=== PATIENT | male | born 1995 | race Caucasian/White ===

== ENCOUNTER 2016-10-06 19:31 | Emergency (ER) | payer OTHER ==
[2016-10-06 19:40] VITALS: BP 115/64
[2016-10-06] MEDS ORDERED: Clindamycin 900 MG IVPREMIX(* 900 MG/50 ML SDV IV ONE (20:23)
[2016-10-06] MEDS ORDERED: Acetaminophen IV 1GM/100ML * 1,000 MG/100 ML VIAL IVPB ONE (20:23)
[2016-10-06] MEDS ORDERED: NS 0.9% 1000 ML* 2,000 ML IV ONE (20:23)
[2016-10-06 20:41] LABS: Hematocrit 40 % (42-52); Hemoglobin 13.9 g/dl (14.0-18.0); Mean Corpuscular HGB Conc 35 g/dl (31-36); Mean Corpuscular Hemoglobin 29 pg (27-31); Mean Corpuscular Volume 83 fL (80-94); Mean Platelet Volume 7 um3 (7.4-10.4); Red Blood Count 4.78 10^6/ul (4.0-5.4); Red Cell Distribution Width 13 % (10.5-15); White Blood Count 12.7 10^3/ul (3.5-10.8)
[2016-10-06] MEDS ORDERED: Dexamethasone IV* 8 MG in NS 0.9% 50 ML* 50 ML IVPB ONE ×2 (20:54→21:00)
[2016-10-06 20:58] LABS: Albumin 4.3 g/dL (3.2-5.2); BUN/Creatinine Ratio 19.7 (8-20); C Reactive Protein 100.35 mg/L (< 5.00); Calcium 9.4 mg/dL (8.6-10.3); EGFR African American 166.5 (>60); EGFR Non-African American 129.5 (>60); Globulin 2.7 g/dL (2-4); Potassium 3.8 mmol/L (3.5-5.0); Total Bilirubin 2.9 mg/dL (0.2-1.0)
[2016-10-06] MEDS ORDERED: Acetaminophen IV 1GM/100ML * 1,000 MG in PREMIX* 0 ML IVPB ONE (21:00)
[2016-10-06] MEDS ORDERED: Dexamethasone IV* 8 MG in NS 0.9% 50 ML* 50 ML IVPB SCH (21:00)
[2016-10-06] MEDS ORDERED: NS 0.9% 50 ML* 50 ML ONE (21:05)
[2016-10-06] MEDS ORDERED: Ketorolac INJ* 30 MG/ML 1 ML VIAL IV ONE (22:05)
[2016-10-06] MEDS ORDERED: Clindamycin CAP* 150 MG PO ONE (22:07)
[2016-10-06] MEDS ORDERED: Ketorolac INJ* 60 MG/2 ML VIAL IM ONE (22:14)
--- NOTE | 2016-10-06 23:13 | ED ---
Throat Pain/Nasal Congestion - HPI Summary HPI Summary: Patient presents with throat pain and swelling since yesterday. Three weeks ago he had similar symptoms and was diagnosed with a peritonsillar abscess, which was treated and he thought resolved. He denies difficulty breathing or swallowing, although it hurts to swallow. He was suppose to follow-up with an ENT today in [place], but he is a student at [employer] and could not get to [place]. He denies fever, chills, N/V/D or neck pain. - History of Current Complaint Chief Complaint: EDThroatPain Time Seen by Provider: 10/06/16 20:05 Hx Obtained From: Patient Onset/Duration: Gradual Onset Severity: Severe Associated Signs And Symptoms: Positive: Dysphagia Cough: None - Allergies/Home Medications Allergies/Adverse Reactions: Allergies Allergy/AdvReac Type Severity Reaction Status Date / Time No Known Allergies Allergy Verified 10/06/16 19:40 PMH/Surg Hx/FS Hx/Imm Hx Previously Healthy: Yes Infectious Disease History: Denies: Traveled Outside the in Last 30 Days - Family History Known Family History: Positive: None - Social History Occupation: Student Lives: Alone Alcohol Use: None Substance Use Type: Reports: None Smoking Status (MU): Never Smoked Tobacco Review of Systems Negative: Fever, Chills Positive: Sore Throat. Negative: Ear Ache, Nasal Discharge Negative: Chest Pain Negative: Shortness Of Breath All Other Systems Reviewed And Are Negative: Yes Physical Exam Triage Information Reviewed: Yes Vital Signs On Initial Exam: Initial Vitals Temp Pulse Resp BP Pulse Ox 100.1 F 105 18 115/64 98 10/06/16 19:35 10/06/16 19:35 10/06/16 19:35 10/06/16 19:35 10/06/16 19:35 Vital Signs Reviewed: Yes Appearance: Positive: Well-Appearing, Well-Nourished, Pain Distress Skin: Positive: Warm, Skin Color Reflects Adequate Perfusion, Dry, Soft Head/Face: Positive: Normal Head/Face Inspection Eyes: Positive: EOMI, LETI, Conjunctiva Clear ENT: Positive: Hearing grossly normal, TMs normal, Tonsillar swelling - right side, Trismus - mild. Negative: Pharyngeal erythema, Nasal congestion, Tonsillar exudate Neck: Positive: Supple, No Lymphadenopathy, Tenderness @ Respiratory/Lung Sounds: Positive: Clear to Auscultation, Breath Sounds Present Cardiovascular: Positive: Tachycardia Musculoskeletal: Negative: Edema Left, Edema Right Neurological: Positive: Sensory/Motor Intact, Alert, Oriented to Person Place, Time, NV Bundle Intact Distally Psychiatric: Positive: Affect/Mood Appropriate AVPU Assessment: Alert Diagnostics - Vital Signs Vital Signs Temp Pulse Resp BP Pulse Ox 10/06/16 19:35 100.1 F 105 18 115/64 98 - Laboratory Lab Results: Lab Results 10/06/16 10/06/16 Range/Units 20:30 20:30 WBC 12.7 H (3.5-10.8) 10^3/ul RBC 4.78 (4.0-5.4) 10^6/ul Hgb 13.9 L (14.0-18.0) g/dl Hct 40 L (42-52) % MCV 83 (80-94) fL MCH 29 (27-31) pg MCHC 35 (31-36) g/dl RDW 13 (10.5-15) % Plt Count 212 (150-450) 10^3/ul MPV 7 L (7.4-10.4) um3 Neut % (Auto) 79.1 (38-83) % Lymph % (Auto) 11.3 L (25-47) % [place] % (Auto) 8.0 (1-9) % Eos % (Auto) 0.8 (0-6) % Baso % (Auto) 0.8 (0-2) % Absolute Neuts (auto) 10.0 H (1.5-7.7) 10^3/ul Absolute Lymphs (auto) 1.4 (1.0-4.8) 10^3/ul Absolute Monos (auto) 1.0 H (0-0.8) 10^3/ul Absolute Eos (auto) 0.1 (0-0.6) 10^3/ul Absolute Basos (auto) 0.1 (0-0.2) 10^3/ul Absolute Nucleated RBC 0 10^3/ul Nucleated RBC % 0 Sodium 136 (133-145) mmol/L Potassium 3.8 (3.5-5.0) mmol/L Chloride 100 L (101-111) mmol/L Carbon Dioxide 27 (22-32) mmol/L Anion Gap 9 (2-11) mmol/L BUN 15 (6-24) mg/dL Creatinine 0.76 (0.67-1.17) mg/dL Est GFR ( Amer) 166.5 (>60) Est GFR (Non-Af Amer) 129.5 (>60) BUN/Creatinine Ratio 19.7 (8-20) Glucose 87 (70-100) mg/dL Calcium 9.4 (8.6-10.3) mg/dL Total Bilirubin 2.90 H (0.2-1.0) mg/dL AST 16 (13-39) U/L ALT 11 (7-52) U/L Alkaline Phosphatase 55 (34-104) U/L C-Reactive Protein 100.35 H (< 5.00) mg/L Total Protein 7.0 (6.4-8.9) g/dL Albumin 4.3 (3.2-5.2) g/dL Globulin 2.7 (2-4) g/dL Albumin/Globulin Ratio 1.6 (1-3) Result Diagrams: 10/06/16 20:30 10/06/16 20:30 Lab Statement: Any lab studies that have been ordered have been reviewed, and results considered in the medical decision making process. Re-Evaluation - Re-Evaluation First Eval Re-Evaluation Time: 21:25 Change: Improved - pain has improved EENT Course/Dx - Differential Diagnoses Differential Diagnoses: Dental Abscess, Epiglottitis, Fractured Tooth, Gingivitis, Moustapha's Angina, Periodontic Disease, Peritonsillar Ulcer, Pharyngitis, Tonsilitis, Trauma - Diagnoses Provider Diagnoses: Peritonsillar abscess - Provider Notifications Discussed Care of Patient with: Dr. Segura, ED attending; Dr. Floyd, ENT. Instructed by Provider To: Have Pt Call For Appt. Discharge - Discharge Plan Condition: Stable Disposition: HOME Prescriptions: Clindamycin Cap(NF) [Cleocin 300 mg Cap(NF)] 300 mg PO Q6H #39 cap Patient Education Materials: Peritonsillar Abscess (ED) Referrals: [facility] ADRYAN Naidu [Primary Care Provider] - Additional Instructions: Please call Dr. Floyd's office first thing in the morning for an appointment to be seen tomorrow. Take the antibiotics prescribed until completely gone. Take the dose given to you from the emergency department at 4 am. Sleep with your head elevated on several pillows tonight. Call 911 or return to the emergency department if symptoms worsen.
== END 2016-10-06 21:59 | disposition home or self-care (01) ==
LOC: ED 19:31
DX: J36 Peritonsillar abscess (principal)
CPT/HCPCS: 36415; 80053; 85025; 86140; 96360; 96372; 96374; 99282; A9270-GY; J1100; J1885